=== PATIENT | female | born 1960 | race Caucasian/White ===

== ENCOUNTER 2017-10-13 18:21 | Emergency (ER) | payer OTHER ==
[~2017-10-13] VITALS: Ht 167.6 cm; Wt 61.2 kg
--- NOTE | ~2017-10-13 | EKG ---
[address] [place] [address] ELECTROCARDIOGRAM REPORT Name: AALIYAH BEST Room #: REG [facility] CAMPUSValdez#: [id number] Admission: 10/13/17 Attend Phys: Discharge: Date of : 62 Report #: [id number] THIS REPORT FOR: //name// [facility] ED Test Date: 2017-10-13 Test Time: 18:45:04 Pat Name: AALIYAH BEST Department: Room: Gender: F Supervisor Data Processing: MZOOGio : 1960 Requested By: Inocencia Cortes Order Number: [id number] MD: Nathen Gong Measurements Intervals [place] Rate: 64 P: 70 FL: 156 QRS: 59 QRSD: 123 T: 51 QT: 465 QTc: 480 Interpretive Statements Sinus rhythm Probable left atrial enlargement Nonspecific intraventricular conduction delay Electronically Signed On 10-13-2017 22:01:08 CDT by Nathen Gong [email or web address] <ELECTRONICALLY SIGNED> By: Nathen Gong MD 10/13/17 2201 1845 1845 Nathen Gong MD /EPI
[2017-10-13] MEDS ORDERED: QUINAPRIL 20 MG20 MG (19:09)
[2017-10-13] MEDS ORDERED: TOPROL XL25 MG PO (19:09)
[2017-10-13] MEDS ORDERED: KLOR-CON 1010 MEQ PO (19:09)
[2017-10-13] MEDS ORDERED: HYDROCHLOROTH12.5 M1 PO (19:09)
[2017-10-13] MEDS ORDERED: WELLBUTRIN 100100 MG PO (19:10)
[2017-10-13] MEDS ORDERED: BUTALB-APAP-CA1 EACH PO (19:10)
[2017-10-13 19:23] LABS: ABSOLUTE NEUTROPHILS 3.7 thou/uL (1.4-8.2); BASOPHILS 0.5 % (0.0-2.0); EOSINOPHILS 2.5 % (0.0-3.0); HEMATOCRIT 36.9 % (37.0-47.0); HEMOGLOBIN 12.7 gm/dL (12.0-15.0); LYMPHOCYTES 37.2 % (24.0-44.0); MCH 29.5 pg (26.0-34.0); MCHC 34.3 g/dL (28.0-37.0); MONOCYTES 7.9 % (1.0-8.0); PLATELET COUNT 299 thou/uL (150-400); POLYS 51.9 % (36.0-66.0); RBC 4.29 mil/uL (4.20-5.00); RDW 13.4 % (10.5-14.5); WBC 7.1 thou/uL (4.0-11.0)
[2017-10-13 19:33] LABS: ANION GAP 7 mmol/L (7-16); BUN 13 mg/dL (7-18); CALCIUM 8.7 mg/dL (8.5-10.1); CHLORIDE 103 mmol/L (98-107); CO2 30 mmol/L (21-32); CREATININE 0.9 mg/dL (0.6-1.0); GLUCOSE 88 mg/dL (74-106); SODIUM 140 mmol/L (136-145)
[2017-10-13 19:38] LABS: POTASSIUM 2.8 mmol/L (3.5-5.1)
[2017-10-13 19:41] LABS: ALBUMIN 3.3 g/dL (3.4-5.0); SGOT 25 U/L (15-37); SGPT 21 U/L (30-65); TOTAL BILIRUBIN 0.2 mg/dL (<0.1-1.0); TOTAL PROTEIN 6.5 g/dL (6.4-8.2); TROPONIN-I < 0.04 ng/mL (<0.06)
[2017-10-13 21:00] VITALS: BP 102/56
[2017-10-13 21:26] LABS: URINE BILIRUBIN NEGATIVE (Negative); URINE BLOOD NEGATIVE (Negative); URINE CLARITY CLEAR; URINE COLOR YELLOW; URINE GLUCOSE-RANDOM* NEGATIVE (Negative); URINE KETONES NEGATIVE (Negative); URINE LEUKOCYTES NEGATIVE (Negative); URINE NITRITE NEGATIVE (Negative); URINE PROTEIN (DIPSTICK) NEGATIVE (Negative); URINE SPECIFIC GRAVITY <= 1.005 (1.005-1.035); URINE UROBILINOGEN 0.2 E.U./dl (0.2-1.0)
[2017-10-13 21:34] LABS: AMP/METHAMP Negative (Negative); BARBITURATES POSITIVE (Negative); BENZODIAZEPINES POSITIVE (Negative); COCAINE Negative (Negative); METHADONE Negative (Negative); OPIATES POSITIVE (Negative); PCP Negative (Negative)
== END 2017-10-13 22:29 | disposition home or self-care (01) ==
LOC: ER 18:21
PROVIDERS: Physician Assistant
DX: S16.1XXA Strain of muscle, fascia and tendon at neck level, initial encounter (principal); S00.83XA Contusion of other part of head, initial encounter; R10.13 Epigastric pain; E87.6 Hypokalemia; F11.10 Opioid abuse, uncomplicated; F13.10 Sedative, hypnotic or anxiolytic abuse, uncomplicated; R07.9 Chest pain, unspecified; Z91.14 Patient's other noncompliance with medication regimen; V49.49XA Driver injured in collision with other motor vehicles in traffic accident, initial encounter; Y93.I9 Activity, other involving external motion; Y92.89 Other specified places as the place of occurrence of the external cause; Y99.8 Other external cause status